=== PATIENT | male | born 1955 ===

== ENCOUNTER → 2021-10-18 | Outpatient (CLI) | payer MEDICARE ==
--- NOTE | 2021-10-18 17:39 | RAD ---
EXAM: PET/CT SCAN INDICATION: COMPARISON: Low-dose lung CT 09/20/2021. CT abdomen pelvis 07/08/2021 PET/CT SCAN TECHNIQUE: Approximately 60 minutes after the intravenous administration of 13.2 millicur ies of F-18 fluorodeoxyglucose (FDG), PET imaging of the body from the base of the skull through the mid thighs was performed. Reconstruction in all 3 planes were performed. The patient's serum glucose level at the time of the F-18 FDG administration was 97 mg/dL. A noncontrast CT scan was obtained for attenuation correction and anatomic localization purposes only and is not considered a diagnostic CT scan. PQRS compliance Statement One or more of the following individualized dose reduction techniques were utilized for this study: 1. Automated exposure control 2. Adjustment of the mA and/or kV according to patient size 3. Use of iterative reconstruction technique FINDINGS: HEAD AND NECK: No abnormal FDG uptake. FDG uptake in the paraspinous muscles in the neck is physiolog ic. No lymphadenopathy. CHEST: No FDG uptake detected in the 1 cm nodule in the right upper lobe. There is low-level FDG upta ke in several prominent low right paratracheal, precarinal, and AP window lymph nodes with SUV max 2. 8, likely reactive. No FDG uptake in the small bilateral axillary lymph nodes. There is a calcified g ranuloma in the right lower lobe. No pleural effusion. The heart is normal in size. There are coronar y artery calcifications. Thoracic aorta is normal in caliber. ABDOMEN AND PELVIS: No abnormal FDG uptake. 5 mm non-FDG avid hypodensity in the posterior right hepa tic lobe, likely a cyst, unchanged. 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 Spleen, adrenal gla nds, kidneys, ureters, and bladder are unremarkable. Prostate gland unremarkable. MUSCULOSKELETAL: No abnormal FDG uptake. The bones are diffusely demineralized. 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 Severe facet arthrosis bilaterally at L4-L5 and L5-S1, and on the right at L3-L4 IMPRESSION: 1. No FDG uptake detected in the 1 cm nodule in the right upper lobe. Benign etiology is favored alth ough given the small size of the nodule and limitations of PET CT, consider continued CT surveillance . 2. Low-level FDG uptake in several prominent mediastinal lymph nodes, likely reactive. Electronically signed by: Ashely Cerrato MD (10/18/2021 5:36 PM) [facility]
== END ==
LOC: PETSC 08:36
PROVIDERS: ATTEND Internal Medicine Pulmonary Disease
DX: R91.1 Solitary pulmonary nodule (principal); J84.10 Pulmonary fibrosis, unspecified; M47.817 Spondylosis without myelopathy or radiculopathy, lumbosacral region
CPT/HCPCS: 78815; A9552